=== PATIENT | male | born 1960 | race Two or more races ===

== ENCOUNTER 2020-09-04 16:31 | Emergency (ER) | payer OTHER, SELFPAY ==
[~2020-09-04] VITALS: Ht 180.3 cm; Wt 100.0 kg
[2020-09-04 18:22] VITALS: BP 126/73
== END 2020-09-04 20:23 | disposition home or self-care (01) ==
LOC: ED 19:46
DX: S70.02XA Contusion of left hip, initial encounter (principal); S80.02XA Contusion of left knee, initial encounter; S80.01XA Contusion of right knee, initial encounter; Z87.891 Personal history of nicotine dependence; W03.XXXA Other fall on same level due to collision with another person, initial encounter; Y93.89 Activity, other specified; Y92.69 Other specified industrial and construction area as the place of occurrence of the external cause; Y99.0 Civilian activity done for income or pay
CPT/HCPCS: 99284